=== PATIENT | female | born 1950 | race Caucasian/White ===

== ENCOUNTER 2017-09-20 12:35 | Inpatient (IN) | payer MEDICARE ==
[2017-09-20 13:18] LABS: #Basophils 0.1 thou/uL (0.0-0.2); #Eosinphils 0.1 thou/uL (0.0-0.7); #Lymphocytes 1.7 thou/uL (1.20-3.40); #Monocytes 0.4 thou/uL (0.11-0.59); #Neutrophils 3.3 thou/uL (1.40-6.50); %Basophils 1.1 % (0.0-1.0); %Eosinophils 1.1 % (0.0-10.0); %Lymphocytes 30.9 % (21.0-51.0); %Monocytes 7.1 % (0.0-10.0); %Neutrophils 59.8 % (42.0-75.0); Hemoglobin 12.7 g/dL (12.0-16.0); Mean Corpuscular HGB CONC 33.2 g/dL (32.0-36.0); Mean Corpuscular Hemoglobin 28.9 pg (27.0-31.0); Mean Corpuscular Volume 86.9 fl (81.0-99.0); Mean Platelet Volume 6.8 fL (7.4-10.4); Platelet Count 259 thou/uL (130-400); RBC Distribution Width 13.3 % (11.5-14.5); Red Blood Cell (RBC) Count 4.39 mill/uL (4.20-5.40); White Blood Cell (WBC) Count 5.5 thou/uL (4.8-10.8)
[2017-09-20 13:24] LABS: ALT (SGPT) 21 U/L (8-55); AST (SGOT) 16 U/L (5-34); Albumin 4.2 g/dL (3.4-4.8); Alkaline Phosphatase 69 U/L (40-150); Anion Gap 15 mmol/L (10-20); BUN (Urea Nitrogen) 20 mg/dL (9.8-20.1); Bilirubin, Total 0.5 mg/dL (0.2-1.2); Calc. Creatinine Clearance 0 mL/min (70-130); Carbon Dioxide 23 mmol/L (23-31); Chloride 106 mmol/L (98-107); Estimated GFR-MDRD 45; Globulin 3.6 g/dL (2.4-3.5); Glucose 172 mg/dL (80-115); Potassium 4.1 mmol/L (3.5-5.1); Protein, Total 7.8 g/dL (6.0-8.3); Sodium 140 mmol/L (136-145)
[2017-09-20 13:31] LABS: CKMB 2.5 ng/mL (0-6.6); Troponin I 0.222 ng/mL (< 0.028)
[2017-09-20 14:15] LABS: Bilirubin Negative (Negative); Blood, Urine Negative (Negative); Clarity Clear (Clear); Glucose, Urine (Dipstick) Negative (Negative); Leukocyte Negative (Negative); Nitrite Negative (Negative); Protein, Urine (Dipstick) Negative (Neg-Trace); Urobilinogen 0.2 mg/dL (0.2-1.0)
--- NOTE | 2017-09-20 14:49 | CT ---
CT ARTERIOGRAM CHEST WITH IV CONTRAST AND 3D MIP IMAGING: HISTORY: Tachycardia. Elevated D-dimer. FINDINGS: There is good contrast opacification of the pulmonary arteries and thoracic aorta with normal branchi ng of the great vessels. No pleural fluid or pneumothorax is apparent. No mediastinal adenopathy. Postoperative changes of the cervical spine are partially visualized. A 0.8 cm noncalcified nodule within the right middle lobe is stable, compared to CT abdomen from 04/02. IMPRESSION: No CT evidence for pulmonary embolus. POS: [facility]
--- NOTE | 2017-09-20 14:52 | CT ---
CT OF THE ABDOMEN AND PELVIS WITH CONTRAST: COMPARISON: 04/20/15. HISTORY: Left-sided abdominal pain. TECHNIQUE: Multiple contiguous axial images were obtained in a CT of the abdomen and pelvis with contrast. Juliano nal reformats were performed. FINDINGS: The gallbladder is not seen and has likely been removed. There are small hypodensities in the bilate ral kidneys which are stable and likely represents cysts. The liver, adrenal glands, spleen, and juan creas are unremarkable. No free air, free fluid, or stranding changes are seen in the abdomen or pel vis. The patient is status post hysterectomy. The large and small bowel are unremarkable. Atheroscleroti c calcifications are seen in the aorta. Mild degenerative changes are seen in the spine. The abdominal wall soft tissues are unremarkable. Please see dedicated CTA of the chest for findings above the diaphragm. IMPRESSION: 1. No evidence of acute intraabdominal/pelvic abnormality. 2. Bilateral renal cysts. POS: [facility]
[2017-09-20] MEDS ORDERED: Iopamidol 370 76% 100 ML VIAL ONE (16:43)
[2017-09-20 17:00] LABS: Troponin I 0.521 ng/mL (< 0.028)
[2017-09-20] MEDS ORDERED: Nitroglycerin 2% Ointment 1 INCH/1 GM Packet ONE (17:21)
[2017-09-20] MEDS ORDERED: Ondansetron HCl/PF 4 MG/2 ML Vial ONE (17:21)
[2017-09-20] MEDS ORDERED: Enoxaparin Sodium 100 MG/ML SYRINGE ONE (18:14)
[2017-09-20 20:04] LABS: Troponin I 0.588 ng/mL (< 0.028)
[2017-09-20] MEDS ORDERED: Nitroglycerin 2% Ointment 1 INCH/1 GM Packet TOP SCH (23:59)
[2017-09-21] MEDS ORDERED: Ondansetron HCl/PF 4 MG/2 ML Vial IVP PRN (07:50)
[2017-09-21] MEDS ORDERED: Zolpidem Tartrate 5 MG TAB PO PRN (07:50)
[2017-09-21] MEDS ORDERED: HYDROcodone/Acetaminophen 5/325 mg Tablet PO PRN (07:50)
[2017-09-21] MEDS ORDERED: Eucerin (Mineral Oil/Petrolatum,White) 30 gm Jar TOP PRN (07:50)
[2017-09-21] MEDS ORDERED: Senokot 8.6 MG TAB PO PRN (07:50)
[2017-09-21] MEDS ORDERED: hydrALAZINE 20 MG/ML VIAL SLOW IVP PRN (07:50)
[2017-09-21] MEDS ORDERED: clonazePAM 1 MG TAB PO PRN (07:50)
[2017-09-21] MEDS ORDERED: Artificial Tears 18 DROP/0.9 ML EA EYE PRN (07:50)
[2017-09-21] MEDS ORDERED: Chloraseptic Spray 180 ml Bottle PO PRN (07:50)
[2017-09-21] MEDS ORDERED: Nitroglycerin 0.4 MG TAB (25 Tab Bottle) SL PRN (07:50)
[2017-09-21] MEDS ORDERED: Milk Of Magnesia 30 ML UDCUP PO PRN (07:50)
[2017-09-21] MEDS ORDERED: Diabetic Tussin 200 MG/10 ML UDCUP PO PRN (07:50)
[2017-09-21] MEDS ORDERED: Sodium Chloride 0.65% Nasal 44 ML BOT EA NARE PRN (07:50)
[2017-09-21] MEDS ORDERED: HumaLOG 300 UNITS/3 ML VIAL SC PRN ×2 (07:50)
[2017-09-21] MEDS ORDERED: Mag-Al 1200 mg/1200 mg/30 ML UDCUP PO PRN (07:50)
[2017-09-21] MEDS ORDERED: Loratadine 10 MG TAB PO PRN (07:50)
[2017-09-21] MEDS ORDERED: Ondansetron ODT 4 MG TAB PO PRN (07:50)
[2017-09-21] MEDS ORDERED: Dextrose 5% in Water 1,000 ML IV PRN (07:50)
[2017-09-21] MEDS ORDERED: Dextrose 50% Abboject 50 ML SYRINGE SLOW IVP PRN (07:50)
[2017-09-21] MEDS ORDERED: Loperamide HCl 2 MG CAP PO PRN (07:50)
[2017-09-21] MEDS ORDERED: Acetaminophen 325 MG TAB PO PRN (07:50)
[2017-09-21] MEDS ORDERED: glipiZIDE 5 MG TAB PO SCH (08:30)
[2017-09-21] MEDS ORDERED: Lisinopril 5 MG TAB PO SCH (09:00)
[2017-09-21 09:19] VITALS: BMI 35.8
[2017-09-21] MEDS ORDERED: Sodium Chloride 0.9% 10 ML ONE (09:32)
[2017-09-21] MEDS: Aspirin 325 MG TAB PO SCH (10:33)
[2017-09-21] MEDS: Estradiol 1 MG TAB PO SCH (10:35)
[2017-09-21] MEDS: Ubidecarenone 50 MG CAP PO SCH (10:36)
--- NOTE | 2017-09-21 11:18 | HP ---
PRIMARY CARE PHYSICIAN: Dr. Preston Herring D.O. REASON FOR ADMISSION: Acute hypotension, tachycardia, non-ST elevation myocardial infarction. HISTORY OF PRESENT ILLNESS: A 67-year-old female who has underlying of hypertension, diabetes type 2 , gastroesophageal reflux disease, hypothyroidism, anxiety and depression who was evaluated at [facility] Emergency Room yesterday. The patient reports that for the last few days, she was ex periencing dizziness. Patient was reporting to me that whenever she was bending, she was feeling diz zy, lightheaded, and nausea. This was going on for about 2 to 3 days. The patient also noticed that whenever she was going outside walk with her dog, after that she was feeling more weak and dizzy. S imilarly yesterday morning, she was feeling very weak after returning from walk. She was exhausted. She checked her blood pressure and her blood pressure was in 70 systolic and her pulse was in 150-16 0s. She waited for a few minutes, but her blood pressure remained low, and her pulse remained high. She was feeling palpitation as well. She was feeling weakness, dizziness and that is why she decide d to go to local emergency room at [facility] ER. Patient also noticed that few days ago, she was experiencing funny sensation in her chest and at the same time, she was hurting in her teeth, she was trying to burp, but she was not able to burp and obi t sensation was not related with any exertion or deep breathing or food. This patient was evaluated at [facility] Emergency Room. At that time, she was hemodynami angela stable. Her blood pressure was normal. Initially, she was tachycardic, but she was saturating normal. Her D-dimer was elevated and that is why they did a CT angio which was negative for pulmona ry embolism. Her CT of the abdomen and pelvis was done which was also normal. Routine blood tests s howed elevated troponin. This patient was transferred to our hospital for further evaluation. Patient denies any real chest pain. She denies any syncope. She denies any orthopnea, PND or leg sw elling. She denies any fever, chills, cough, UTI symptoms. She denies any constipation, diarrhea, m alisson, hematochezia. Patient reports that 6 years ago, she had a stress test done in [place] and after that, it was abnor mal and subsequently she had a cardiac catheterization, but it was normal. She also had echocardiogr aphy in our hospital in 03/2017, which was unremarkable and a stress test was also negative. ALLERGIES: Patient is allergic to BETA RYDER, DIPHTHERIA, TETANUS, PERTUSSIS VACCINE, SULFA DRUGS. CURRENT HOME MEDICATIONS: Glipizide 2.5 mg p.o. daily, [place] Thyroid 75 mg p.o. daily, lisinopril 5 mg p.o. daily, Klonopin 1 mg 3 times daily, estradiol 1 mg p.o. at bedtime, Zoloft 100 mg p.o. every day, Zocor 40 mg p.o. at bedtime, Protonix 40 mg p.o. daily, Lasix 20 mg p.o. daily, vitamin D3 of 5 000 units p.o. daily, Probiotic 1 capsule daily, melatonin 10 mg p.o. at bedtime p.r.n., Coenzyme Q10 of 100 mg p.o. daily, ProAir HFA as needed, Symbicort 2 puff inhalation b.i.d., tramadol as needed. REVIEW OF SYSTEMS: The following complete review of systems was negative, unless otherwise mentioned in the HPI or below: Constitutional: Weight loss or gain, ability to conduct usual activities. Sk in: Rash, itching. Eyes: Double vision, pain. ENT/Mouth: Nose bleeding, neck stiffness, pain, te nderness. Cardiovascular: Palpitations, dyspnea on exertion, orthopnea. Respiratory: Shortness of breath, wheezing, cough, hemoptysis, fever or night sweats. Gastrointestinal: Poor appetite, abdom inal pain, heartburn, nausea, vomiting, constipation, or diarrhea. Genitourinary: Urgency, frequenc y, dysuria, nocturia. Musculoskeletal: Pain, swelling. Neurologic/Psychiatric: Anxiety, depressio n. Allergy/Immunologic: Skin rash, bleeding tendency. Please see my HPI for pertinent positives and negatives. All other review of systems reviewed and ne gative except as mentioned in the HPI. 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 PAST SURGICAL HISTORY: Right carpal tunnel surgery, cataract surgery with lens implantation in both eyes, bladder sling surgery, laparoscopy, adhesion removal of the face and neck, left appendicectomy, cholecystectomy, hysterectomy, C4-C5 diskectomy with fusion, C5-C6 with plates, tonsillectomy. PAST PSYCHIATRIC HISTORY: Anxiety, depression, posttraumatic stress disorder, obsessive compulsive d isorder. SOCIAL HISTORY: The patient is living at home by herself. No history of tobacco, alcohol or illicit drug abuse. FAMILY HISTORY: One of the sisters has coronary artery disease. Heart disease runs among several [facility] members. No strong family history of cancer or stroke. EMERGENCY ROOM COURSE: Patient was given Lovenox 1 mg per kg, aspirin 324 mg, Zofran 4 mg, IV fluid 2 liters, and nitropatch 0.5 inch. PHYSICAL EXAMINATION: VITAL SIGNS: On arrival, blood pressure 135/78, pulse 150, respiratory rate 16, temperature 97.8, sa turation 96% on room air, weight 103.4 kilograms. GENERAL: Patient is currently alert, awake, no obvious acute distress. HEENT: Normocephalic, atraumatic. Eyes: Pupils round, reactive to light. Extraocular muscles inta ct. ENT: Oropharynx within normal limits. Moist mucous membranes. No oral lesions. No pharyngeal eryt ct, no exudate. NECK: Supple, no JVD, no thyromegaly, no carotid bruit, no jugular venous distention. LUNGS: Clear to auscultation without any rhonchi or rales. CARDIAC: S1, S2 regular, tachycardia, no murmur, no gallop, no rub. ABDOMEN: Soft, bowel sounds present, nontender, nondistended. No organomegaly, no mass. No epigast tammy tenderness, no Giles sign, no peritoneal sign, no suprapubic tenderness. BACK: Unremarkable. No CVA tenderness. EXTREMITIES: Upper extremity passive movement of all joints are normal. Lower extremities: No katiana a. Good peripheral pulsation. SKIN: No skin rash. HEMATOLOGICAL: No lymphadenopathy. PSYCHIATRIC: Normal affect. SIGNIFICANT LABS: EKG showing normal sinus rhythm, sinus tachycardia, poor R-wave progression. Repe at EKG was also similar to previous without any changes. Chest CT angiography, no evidence of pulmon maria elena embolism. CT of the abdomen and pelvis, no acute abdominal process. CBC: WBC 5.5, hemoglobin 12.7, platelets 259. D-dimer is 0.58. Sodium 140, potassium 4.1, chloride 106, carbon dioxide 23, anion gap 15, BUN 20, creatinine 1.20, glucose 172, calcium 10.0. Lactic ac id 2.0. LFT: AST 16, ALT 21, alkaline phosphatase 69, albumin 4.2, lipase 235, CK-MB 2.5, troponin I 0.222, then 0.521 then 0.588. Urinalysis normal. ASSESSMENT AND PLAN: 1. Non-ST elevation myocardial infarction. This patient has atypical presentation. This patient ramirez s acute weakness. She was hypotensive, tachycardic as well as patient also has a previous history of chest discomfort with some jaw discomfort. Patient has underlying diabetes and in female who we are suspecting this presentation could be angina equivalent. Her troponin has been increased to non-YULIYA OH range and that is why we will treat as non-STEMI. Patient is already given aspirin at the emergen cy room and Lovenox 1 mg per kg in the emergency room. At this point, we will continue with aspirin, Lovenox. We will also start Lipitor 20 mg p.o. at bedtime. The patient is allergic to BETA RYDER therapy and that is why we will hold on that medication. We will consult Cardiology. Patient reggie shoemaker had echocardiography in the recent past, so we will defer that to Cardiology. She may need a repe at cardiac catheterization. We will repeat lipid profile tomorrow morning for risk stratification. If the blood pressure permits, then we will use nitropatch, otherwise we will discontinue nitropatch. We will closely monitor on telemetry floor. 2. Diabetes type 2. We will continue glipizide 2.5 mg p.o. daily, insulin as per sliding scale prot ocol. Diabetic diet will be given. 3. Hypothyroidism. We will continue [place] Thyroid 75 mg p.o. daily as per home dosage and will fiona ck a TSH tomorrow. 4. Gastroesophageal reflux disease. We will continue Protonix 40 mg p.o. daily. 5. Dyslipidemia. Check lipid profile tomorrow and continue Lipitor 20 mg p.o. at bedtime. 6. Anxiety and depression. We will continue clonazepam 1 mg p.o. b.i.d. p.r.n. and 2 mg p.o. at bed time, as well as p.r.n. basis. 7. Obesity with BMI 35. Dietary education given, weight loss education given. Healthy lifestyle me asures discussed with the patient. 8. Chronic kidney disease stage 3. We will monitor renal function, elevated D-dimer, but negative C T angio and ruled out PE. 9. Hypertension, but history of hypotension. At this point, we will hold on lisinopril therapy sofi use of relatively low blood pressure. Whenever blood pressure permits, then we will resume patient's medication. 10. Deep venous thrombosis prophylaxis. Patient is already on full dose of Lovenox therapy. 11. Gastrointestinal prophylaxis, Protonix 40 mg p.o. daily. CODE STATUS: The patient is FULL CODE. The patient does not have a surrogate decision maker. DISPOSITION PLAN: Based on clinical course. We are expecting patient's stay in the hospital more th an 2 midnights. Plan of care discussed with the patient in detail.
[2017-09-21] MEDS: Enoxaparin Sodium 100 MG/ML SYRINGE SC SCH ×2 (13:07→20:27)
[2017-09-21] MEDS ORDERED: Nitroglycerin 2% Ointment 1 INCH/1 GM Packet TOP SCH (14:00)
--- NOTE | 2017-09-21 15:33 | CON ---
DATE OF CONSULTATION: 09/21/2017 CARDIOLOGY CONSULTATION REASON FOR CONSULTATION: Non-STEMI. HISTORY OF PRESENT ILLNESS: Ms. Vasquez is a very pleasant 67-year-old white female who comes to the hospital for tachycardia and hypotension and elevated troponins. She was at home and noticed that bishop montez felt lightheaded when she would lean down. She has had checked her blood pressure and her blood pr essure was 70s/40s and her heart rate was in the 160s. She sat down and rested, thought it might hav melida gotten better, but her heart rate only got down to the 150s and her blood pressure remained in the 70s/40s, she states she was feeling a lot of fluttering of her chest at that time. She thought she m ay be in atrial fibrillation, even though she has never been in this and she thought she might need t o come to the hospital. She called her primary care doctor who recommended that she go to the emerge ncy room given her hypotension. In the ER, she was found to be tachycardic in the 140s and hypotensi ve. She started on IV fluids and that her heart rates only came down to the 60s and her blood pressu re came up to the 120s. EKG done at that time showed a heart rate in the 140s, thought to be in sinu s tachycardia. Troponins were drawn at that time as well and they were elevated, so Cardiology was c onsulted for further evaluation and care. PAST MEDICAL HISTORY: 1. Hypothyroidism. 2. Hypertension. 3. Restless leg syndrome. 4. Bronchial asthma. 5. OCD and PTSD. 6. Sleep apnea. 7. Anxiety and depression. 8. Degenerate joint disease. 9. Rheumatoid arthritis. 10. Type 2 diabetes. 11. Hyperlipidemia. 12. Anemia of iron deficiency. 13. GERD. 14. Peripheral neuropathy. 15. Renal cyst. 16. Benign lung nodule. 17. Diabetic nephropathy. 18. Chronic kidney disease stage 2 now. 19. Nephrolithiasis. 20. Peripheral vascular disease. 21. Mild coronary artery disease on heart catheterization in 2013. PAST SURGICAL HISTORY: 1. Appendectomy. 2. Tonsillectomy. 3. Total hysterectomy in 1970. 4. Cholecystectomy. 5. Thoracic outlet surgery in 1975. 6. C3 and C6 diskectomy and fusion. 7. Ulnar nerve surgery. 8. Carpal tunnel release. 9. Bladder sling and lysis of adhesions. 10. Colonoscopy in the past. ALLERGIES: 1. SULFA DRUGS. 2. BETA BLOCKERS. 3. PENTAZOCINE. 4. LACTATE. 5. TALWIN. OUTPATIENT MEDICATIONS: Include: 1. Sertraline. 2. Glipizide. 3. Clonazepam. 4. Valerian root. 5. Co-Q 10. 6. [place] Thyroid 75 mg a day. 7. Zocor 40 at bedtime. 8. Silica gel. 9. Omeprazole. 10. Melatonin. 11. Lisinopril 5 mg b.i.d. 12. Estradiol 1 mg a day. 13. Cranberry extract. 14. Vitamin D3. 15. Zyrtec. SOCIAL HISTORY: Former smoker, quit about 30 years ago. No alcohol or drugs. FAMILY HISTORY: Father with PVD. REVIEW OF SYSTEMS: A 12 point review some of systems was done and it was all negative unless stated in the history of present illness. PHYSICAL EXAMINATION: VITAL SIGNS: Temperature 98.4, pulse 58, respiration rate 18, sat 95% on room, blood pressure 137/62 . GENERAL: Awake, alert, oriented x3, in no distress. HEENT: Normocephalic, atraumatic. NECK: Supple. LUNGS: Clear. CARDIOVASCULAR: S1, S2, no S3 or S4, no murmurs or rubs. ABDOMEN: Soft, positive bowel sounds. EXTREMITIES: No edema. SKIN: Warm and dry. LABORATORY WORK: Reviewed. CMP is unremarkable except for creatinine of 1.2, GFR 45. Troponin was 0.22, 0.52 and 0.58, glucose in the 120s-130s. Lipase 35. Lactic acid was 2.0, which is normal, ani on gap of 15. UA was unremarkable. CTA of the chest, abdomen, and pelvis was unremarkable. EKG reviewed. Initial EKG was read as sinus tachycardia. I think is most likely an atrial tachycard ia with a heart rate in the 140s and short RP. The second EKG, she is in sinus rhythm, heart rate in the 60s, very different P-wave morphology and then the original EKG when it was called or thought to be sinus tachycardia. ASSESSMENT AND PLAN: 1. Non-ST elevation myocardial infarction: Most likely related to demand ischemia from her atrial t achycardia. I agree with Lovenox full dose at this time and aspirin. Conservative therapy for now. She had a normal heart catheterization in 2013. 2. Atrial tachycardia: She has remained in sinus rhythm while she has been here, she had been evalu ated in the past for palpitations by Dr. Rosas and was not found to have any episodes during monitorin g, this may have been what was going on at that time. We will consult Electrophysiology to see if bernarda mendoza want to do an ablation. She is allergic to beta blockers, so stay away from these, we may put her on low dose calcium channel olegario; however, her blood pressure was little borderline low right now ; hopefully she will get an ablation and this is in fact an atrial tachycardia. Thank you for letting us to participate in the care of your patient. We will follow.
[2017-09-21] MEDS: Melatonin 3 MG TAB PO PRN (20:26)
[2017-09-21] MEDS: clonazePAM 1 MG TAB PO SCH (20:26)
[2017-09-21] MEDS: Atorvastatin Calcium 20 MG TAB PO SCH (21:16)
[2017-09-22 05:28] LABS: #Eosinphils 0.1 thou/uL (0.0-0.7); #Lymphocytes 1.3 thou/uL (1.20-3.40); #Monocytes 0.3 thou/uL (0.11-0.59); #Neutrophils 2.3 thou/uL (1.40-6.50); %Basophils 0.6 % (0.0-1.0); %Eosinophils 2.1 % (0.0-10.0); %Lymphocytes 32.9 % (21.0-51.0); %Neutrophils 56.5 % (42.0-75.0); Hemoglobin 10.9 g/dL (12.0-16.0); Mean Corpuscular HGB CONC 32.9 g/dL (32.0-36.0); Mean Corpuscular Hemoglobin 29.2 pg (27.0-31.0); Mean Corpuscular Volume 88.7 fl (81.0-99.0); Mean Platelet Volume 7.2 fL (7.4-10.4); Platelet Count 191 thou/uL (130-400); RBC Distribution Width 13.4 % (11.5-14.5); Red Blood Cell (RBC) Count 3.75 mill/uL (4.20-5.40); White Blood Cell (WBC) Count 4.1 thou/uL (4.8-10.8)
[2017-09-22 05:36] LABS: ALT (SGPT) 15 U/L (8-55); AST (SGOT) 14 U/L (5-34); Albumin 3.7 g/dL (3.4-4.8); Alkaline Phosphatase 56 U/L (40-150); Anion Gap 13 mmol/L (10-20); BUN (Urea Nitrogen) 14 mg/dL (9.8-20.1); Bilirubin, Total 0.4 mg/dL (0.2-1.2); Calc. Creatinine Clearance 85 mL/min (70-130); Calcium 9.9 mg/dL (7.8-10.44); Carbon Dioxide 26 mmol/L (23-31); Cardiac Risk 5.9 (Less than 4.5); Chloride 103 mmol/L (98-107); Cholesterol 171 mg/dl (< 200 Desired); Estimated GFR-MDRD 51; Globulin 2.9 g/dL (2.4-3.5); Glucose 122 mg/dL (80-115); HDL Cholesterol 29 mg/dL (>60 Neg Risk); LDL Cholesterol, Calculated 93 mg/dL; Potassium 3.9 mmol/L (3.5-5.1); Protein, Total 6.6 g/dL (6.0-8.3); Sodium 138 mmol/L (136-145); Triglycerides 243 mg/dL (Less than 150)
[2017-09-22] MEDS: glipiZIDE 5 MG TAB PO SCH (07:55)
[2017-09-22] MEDS: Enoxaparin Sodium 100 MG/ML SYRINGE SC SCH ×2 (08:39→22:12)
[2017-09-22] MEDS: Aspirin 325 MG TAB PO SCH (08:43)
[2017-09-22] MEDS: Estradiol 1 MG TAB PO SCH (08:44)
[2017-09-22] MEDS: Ubidecarenone 50 MG CAP PO SCH (08:48)
--- NOTE | 2017-09-22 09:55 | PDOC.PN ---
- Subjective Encounter Start Date: 09/22/17 Encounter Start Time: 07:40 pt is doing well, no chest pain, no further tachycardia - Objective Resuscitation Status: Resuscitation Status FULL:Full Resuscitation MAR Reviewed: Yes Vital Signs & Weight: Vital Signs (12 hours) Temp Pulse Resp BP Pulse Ox 09/22/17 07:43 97.3 F L 52 L 16 130/55 L 96 09/22/17 04:00 97.4 F L 54 L 14 118/57 L 95 09/21/17 23:09 82 12 98 Weight Admit Weight 234 lb 11.2 oz Weight 233 lb 9.6 oz I&O: 09/21/17 09/22/17 09/23/17 06:59 06:59 06:59 Intake Total 500 950 Output Total 250 1200 Balance 250 -250 Result Diagrams: 09/22/17 04:24 09/22/17 04:24 Additional Labs: Accuchecks 09/22/17 09/21/17 09/21/17 06:19 20:25 17:24 POC Glucose 127 H 121 H 124 H 09/21/17 11:29 POC Glucose 131 H EKG Reviewed by me: Yes (nsr) Phys Exam - Physical Examination Constitutional: NAD HEENT: PERRLA, moist MMs, sclera anicteric Neck: no JVD, supple Respiratory: no wheezing, no rales, no rhonchi Cardiovascular: RRR, no significant murmur, no rub Gastrointestinal: soft, non-tender, no distention, positive bowel sounds Musculoskeletal: no edema, pulses present Neurological: non-focal, normal sensation, moves all 4 limbs Psychiatric: normal affect, A&O x 3 Skin: no rash, normal turgor Dx/Plan (1) Hypotension Status: Resolved (2) Atrial tachycardia Code(s): I47.1 - SUPRAVENTRICULAR TACHYCARDIA Status: Resolved (3) Demand ischemia of myocardium Code(s): I24.8 - OTHER FORMS OF ACUTE ISCHEMIC HEART DISEASE Status: Acute (4) Obesity (BMI 30-39.9) Code(s): E66.9 - OBESITY, UNSPECIFIED Status: Chronic (5) Hypertension Code(s): I10 - ESSENTIAL (PRIMARY) HYPERTENSION Status: Chronic (6) Diabetes type 2, controlled Code(s): E11.9 - TYPE 2 DIABETES MELLITUS WITHOUT COMPLICATIONS Status: Chronic (7) Dyslipidemia Code(s): E78.5 - HYPERLIPIDEMIA, UNSPECIFIED Status: Chronic (8) GERD (gastroesophageal reflux disease) Code(s): K21.9 - GASTRO-ESOPHAGEAL REFLUX DISEASE WITHOUT ESOPHAGITIS Status: Chronic (9) Hypothyroidism Code(s): E03.9 - HYPOTHYROIDISM, UNSPECIFIED Status: Chronic (10) Anxiety and depression Code(s): F41.8 - OTHER SPECIFIED ANXIETY DISORDERS Status: Chronic - Plan cont current plan of care * cardiology recommendation noted * tomorrow EP consulted * will need EP study * medication reviewed as below * symptomatic treatment. Review of Systems - Review of Systems Constitutional: negative: fever, chills, sweats, weakness, malaise, other ENT: negative: Ear Pain, Ear Discharge, Nose Pain, Nose Discharge, Nose Congestion, Mouth Pain, Mouth Swelling, Throat Pain, Throat Swelling, Other Respiratory: negative: Cough, Dry, Shortness of Breath, Hemoptysis, SOB with Excertion, Pleuritic Pain, Sputum, Wheezing Cardiovascular: negative: chest pain, palpitations, orthopnea, paroxysmal nocturnal dyspnea, edema, light headedness, other Gastrointestinal: negative: Nausea, Vomiting, Abdominal Pain, Diarrhea, Constipation, Melena, Hematochezia, Other Genitourinary: negative: Dysuria, Frequency, Incontinence, Hematuria, Retention , Other Musculoskeletal: negative: Neck Pain, Shoulder Pain, Arm Pain, Back Pain, Hand Pain, Leg Pain, Foot Pain, Other Skin: negative: Rash, Lesions, Miguel, Bruising, Other - Medications/Allergies Allergies/Adverse Reactions: Allergies Allergy/AdvReac Type Severity Reaction Status Date / Time Beta-Blockers Allergy Verified 09/20/17 23:31 (Beta-Adrenergic Bloc diphtheria,pertussis Allergy Verified 09/20/17 23:31 (acellular),te [From Adacel(Tdap Adolesn/Adult)(PF)] pentazocine [From Talwin] Allergy Verified 09/20/17 23:31 Sulfa (Sulfonamide Allergy Verified 09/20/17 23:31 Antibiotics) Medications: Current Medications Acetaminophen (Tylenol) 650 mg PO Q4H PRN PRN Reason: Headache/Fever or Pain Hydrocodone Bitart/Acetaminophen ([place] 5/325) 1 tab PO Q4H PRN PRN Reason: Moderate Pain (4-6) Al Hydroxide/Mg Hydroxide (Maalox) 30 ml PO Q6H PRN PRN Reason: Heartburn or Indigestion Artificial Tears (Tears Naturale) 0 drop EA EYE PRN PRN PRN Reason: Dry Eyes Aspirin (Aspirin) 325 mg PO DAILY [facility], [facility] Last Admin: 09/22/17 08:43 Dose: 325 mg Atorvastatin Calcium (Lipitor) 20 mg PO HS [facility] Last Admin: 09/21/17 21:16 Dose: Not Given Cholecalciferol (Vitamin D3) 5,000 units PO DAILY [facility], [facility] Last Admin: 09/22/17 08:43 Dose: 5,000 units Clonazepam (Klonopin) 2 mg PO HS [facility] Last Admin: 09/21/17 20:26 Dose: 2 mg Clonazepam (Klonopin) 1 mg PO BID PRN PRN Reason: Anxiety Coenzyme Q10 (Coenzyme Q10) 100 mg PO DAILY [facility] Last Admin: 09/22/17 08:48 Dose: 100 mg Dextrose/Water (Dextrose 50%) 25 gm SLOW IVP PRN PRN PRN Reason: Hypoglycemia Enoxaparin Sodium (Lovenox) 100 mg SC 0900,2100 [facility] Last Admin: 09/22/17 08:39 Dose: 100 mg Estradiol (Estrace) 1 mg PO DAILY [facility] Last Admin: 09/22/17 08:44 Dose: 1 mg Glipizide (Glucotrol) 2.5 mg PO DAILY-[facility] Last Admin: 09/22/17 07:55 Dose: 2.5 mg Glucagon (Glucagon) 1 mg IM PRN PRN PRN Reason: Hypoglycemia Guaifenesin (Robitussin Sf) 200 mg PO Q4H PRN PRN Reason: Cough Hydralazine HCl (Apresoline) 10 mg SLOW IVP Q4H PRN PRN Reason: Systolic BP > 180 Dextrose/Water (D5w) 1,000 mls @ 0 mls/hr IV .Q0M PRN; As Directed PRN Reason: Hypoglycemia Insulin Human Lispro (Humalog) 0 units SC .MODERATE SLIDING SC PRN PRN Reason: Moderate Correctional Scale Insulin Human Lispro (Humalog) 0 units SC .BEDTIME SLIDING SC PRN PRN Reason: Bedtime Correctional Scale Loperamide HCl (Imodium) 2 mg PO PRN PRN PRN Reason: Diarrhea/Loose Stools Loratadine (Claritin) 10 mg PO DAILYPRN PRN PRN Reason: Sinus Symptoms Last Admin: 09/21/17 20:27 Dose: 10 mg Magnesium Hydroxide (Milk Of Magnesium) 30 ml PO DAILYPRN PRN PRN Reason: Constipation Melatonin (Melatonin) 9 mg PO HS PRN PRN Reason: Insomnia Last Admin: 09/21/17 20:26 Dose: 9 mg Mineral Oil/White Petrolatum (Eucerin Cream) 0 gm TOP BIDPRN PRN PRN Reason: Dry Skin Nitroglycerin (Nitrostat) 0.4 mg SL Q5MIN PRN PRN Reason: Chest Pain Ondansetron HCl (Zofran Odt) 4 mg PO Q6H PRN PRN Reason: Nausea/Vomiting Ondansetron HCl (Zofran) 4 mg IVP Q6H PRN PRN Reason: Nausea/Vomiting Pantoprazole Sodium (Protonix) 40 mg PO DAILY [facility] Last Admin: 09/22/17 08:45 Dose: 40 mg Phenol (Chloraseptic [place] 180 Ml Bot) 0 ml PO PRN PRN PRN Reason: Sore Throat Senna (Senokot) 2 tab PO HSPRN PRN PRN Reason: Constipation Sertraline HCl (Zoloft) 150 mg PO DAILY [facility] Last Admin: 09/22/17 08:47 Dose: 150 mg Sodium Chloride ([place] Nasal [place] 0.65%) 0 ml EA NARE QIDPRN PRN PRN Reason: Nasal Congestion Thyroid ([place] Thyroid) 75 mg PO 0600 [facility] Last Admin: 09/22/17 05:11 Dose: 75 mg Zolpidem Tartrate (Ambien) 5 mg PO HSPRN PRN PRN Reason: Insomnia
--- NOTE | 2017-09-22 18:34 | PDOC.CTH ---
Cardiology Progress Note - Subjective She isw doing well. She denies any chest pain, tightness, pressure, SOB. She ramirez snot had any more palpitations. - Objective Vital Signs Temp Pulse Resp BP Pulse Ox 09/22/17 16:00 97.8 F 56 L 16 149/64 H 95 09/22/17 11:41 97.6 F 54 L 18 164/70 H 99 09/22/17 07:43 97.3 F L 52 L 16 130/55 L 96 Admit Weight 234 lb 11.2 oz Weight 233 lb 9.6 oz 09/21/17 09/22/17 09/23/17 06:59 06:59 06:59 Intake Total 500 950 Output Total 250 1200 Balance 250 -250 - Physical Examination General/Neuro: alert & oriented x3, NAD Neck: no JVD present Lungs: CTA, unlabored respirations Heart: RRR Abdomen: NT/ND Extremities: other: (no edema.) - Telemetry Telemetry Rhythm: NSR, S Dean - Labs Result Diagrams: 09/22/17 04:24 09/22/17 04:24 Troponin/CKMB CK-MB (CK-2) 2.5 ng/mL (0-6.6) 09/20/17 12:59 Troponin I 0.588 ng/mL (< 0.028) H* 09/20/17 19:31 - Assessment/Plan 1. Atrial tachycardia likely 2. NSTEMI PLAN: - Will have EP evaluate in the morning. If they think this is not an atrial tach and in fact more likely sinus tach then she will need a LHC, otherwise will leave NPO for possible EP study.
[2017-09-22] MEDS: Melatonin 3 MG TAB PO PRN (22:11)
[2017-09-22] MEDS: clonazePAM 1 MG TAB PO SCH (22:12)
[2017-09-23] MEDS: Atorvastatin Calcium 20 MG TAB PO SCH ×2 (00:36→22:34)
[2017-09-23] MEDS: glipiZIDE 5 MG TAB PO SCH (07:30)
[2017-09-23] MEDS: Enoxaparin Sodium 100 MG/ML SYRINGE SC SCH (09:09)
[2017-09-23] MEDS: Aspirin 325 MG TAB PO SCH (09:20)
[2017-09-23] MEDS: Ubidecarenone 50 MG CAP PO SCH (09:21)
[2017-09-23] MEDS: Sodium Chloride 0.9% 1,000 ML IV SCH (09:22)
[2017-09-23] MEDS: Estradiol 1 MG TAB PO SCH (09:22)
[2017-09-23] MEDS ORDERED: Iopamidol 370 76% 100 ML VIAL ONE (11:39)
--- NOTE | 2017-09-23 12:14 | PDOC.PN ---
- Subjective Encounter Start Date: 09/23/17 Encounter Start Time: 08:10 Patient seen and examined. No new complaints. No overnight events - Objective Resuscitation Status: Resuscitation Status FULL:Full Resuscitation MAR Reviewed: Yes Vital Signs & Weight: Vital Signs (12 hours) Temp Pulse Resp BP Pulse Ox 09/23/17 10:55 98.1 F 58 L 16 169/70 H 94 L 09/23/17 09:40 97.6 F 57 L 16 96 09/23/17 09:19 97.6 F 57 L 16 132/65 96 09/23/17 03:55 97.4 F L 55 L 20 128/58 L 94 L Weight Admit Weight 234 lb 11.2 oz Weight 233 lb 3.2 oz I&O: 09/22/17 09/23/17 09/24/17 06:59 06:59 06:59 Intake Total 950 970 Output Total 1200 1400 Balance -250 -430 Result Diagrams: 09/22/17 04:24 09/22/17 04:24 Additional Labs: Accuchecks 09/22/17 09/22/17 20:05 16:24 POC Glucose 161 H 142 H EKG Reviewed by me: Yes (nsr) Phys Exam - Physical Examination Constitutional: NAD HEENT: PERRLA, moist MMs, sclera anicteric Neck: no JVD, supple Respiratory: no wheezing, no rales, no rhonchi Cardiovascular: RRR, no significant murmur, no rub Gastrointestinal: soft, non-tender, no distention Musculoskeletal: no edema, pulses present Neurological: non-focal, normal sensation Lymphatic: no nodes Psychiatric: normal affect, A&O x 3 Skin: no rash, normal turgor Dx/Plan (1) Hypotension Status: Resolved (2) Atrial tachycardia Code(s): I47.1 - SUPRAVENTRICULAR TACHYCARDIA Status: Resolved (3) Demand ischemia of myocardium Code(s): I24.8 - OTHER FORMS OF ACUTE ISCHEMIC HEART DISEASE Status: Acute (4) Obesity (BMI 30-39.9) Code(s): E66.9 - OBESITY, UNSPECIFIED Status: Chronic (5) Hypertension Code(s): I10 - ESSENTIAL (PRIMARY) HYPERTENSION Status: Chronic (6) Diabetes type 2, controlled Code(s): E11.9 - TYPE 2 DIABETES MELLITUS WITHOUT COMPLICATIONS Status: Chronic (7) Dyslipidemia Code(s): E78.5 - HYPERLIPIDEMIA, UNSPECIFIED Status: Chronic (8) GERD (gastroesophageal reflux disease) Code(s): K21.9 - GASTRO-ESOPHAGEAL REFLUX DISEASE WITHOUT ESOPHAGITIS Status: Chronic (9) Hypothyroidism Code(s): E03.9 - HYPOTHYROIDISM, UNSPECIFIED Status: Chronic (10) Anxiety and depression Code(s): F41.8 - OTHER SPECIFIED ANXIETY DISORDERS Status: Chronic - Plan cont current plan of care, plan discussed w/ family * today plan for cardiac cath * discussed with EP * discussed with * medication reviewed as below * symptomatic treatment * medically stable. Review of Systems - Review of Systems ENT: negative: Ear Pain, Ear Discharge, Nose Pain, Nose Discharge, Nose Congestion, Mouth Pain, Mouth Swelling, Throat Pain, Throat Swelling, Other Respiratory: negative: Cough, Dry, Shortness of Breath, Hemoptysis, SOB with Excertion, Pleuritic Pain, Sputum, Wheezing Cardiovascular: negative: chest pain, palpitations, orthopnea, paroxysmal nocturnal dyspnea, edema, light headedness, other Gastrointestinal: negative: Nausea, Vomiting, Abdominal Pain, Diarrhea, Constipation, Melena, Hematochezia, Other Genitourinary: negative: Dysuria, Frequency, Incontinence, Hematuria, Retention , Other Musculoskeletal: negative: Neck Pain, Shoulder Pain, Arm Pain, Back Pain, Hand Pain, Leg Pain, Foot Pain, Other Skin: negative: Rash, Lesions, Miguel, Bruising, Other - Medications/Allergies Allergies/Adverse Reactions: Allergies Allergy/AdvReac Type Severity Reaction Status Date / Time Beta-Blockers Allergy Verified 09/20/17 23:31 (Beta-Adrenergic Bloc diphtheria,pertussis Allergy Verified 09/20/17 23:31 (acellular),te [From Adacel(Tdap Adolesn/Adult)(PF)] pentazocine [From Talwin] Allergy Verified 09/20/17 23:31 Sulfa (Sulfonamide Allergy Verified 09/20/17 23:31 Antibiotics) Medications: Current Medications Acetaminophen (Tylenol) 650 mg PO Q4H PRN PRN Reason: Headache/Fever or Pain Last Admin: 09/22/17 22:12 Dose: 650 mg Hydrocodone Bitart/Acetaminophen ([place] 5/325) 1 tab PO Q4H PRN PRN Reason: Moderate Pain (4-6) Al Hydroxide/Mg Hydroxide (Maalox) 30 ml PO Q6H PRN PRN Reason: Heartburn or Indigestion Artificial Tears (Tears Naturale) 0 drop EA EYE PRN PRN PRN Reason: Dry Eyes Aspirin (Aspirin) 325 mg PO DAILY [facility] Last Admin: 09/23/17 09:20 Dose: 325 mg Atorvastatin Calcium (Lipitor) 20 mg PO HS [facility] Last Admin: 09/23/17 00:36 Dose: Not Given Cholecalciferol (Vitamin D3) 5,000 units PO DAILY [facility] Last Admin: 09/23/17 09:09 Dose: Not Given Clonazepam (Klonopin) 2 mg PO HS [facility] Last Admin: 09/22/17 22:12 Dose: 2 mg Clonazepam (Klonopin) 1 mg PO BID PRN PRN Reason: Anxiety Coenzyme Q10 (Coenzyme Q10) 100 mg PO DAILY [facility] Last Admin: 09/23/17 09:21 Dose: 100 mg Dextrose/Water (Dextrose 50%) 25 gm SLOW IVP PRN PRN PRN Reason: Hypoglycemia Enoxaparin Sodium (Lovenox) 100 mg SC 0900,2100 [facility] Last Admin: 09/23/17 09:09 Dose: Not Given Estradiol (Estrace) 1 mg PO DAILY [facility] Last Admin: 09/23/17 09:22 Dose: 1 mg Glipizide (Glucotrol) 2.5 mg PO DAILY-AC [facility] Last Admin: 09/23/17 07:30 Dose: Not Given Glucagon (Glucagon) 1 mg IM PRN PRN PRN Reason: Hypoglycemia Guaifenesin (Robitussin Sf) 200 mg PO Q4H PRN PRN Reason: Cough Hydralazine HCl (Apresoline) 10 mg SLOW IVP Q4H PRN PRN Reason: Systolic BP > 180 Dextrose/Water (D5w) 1,000 mls @ 0 mls/hr IV .Q0M PRN; As Directed PRN Reason: Hypoglycemia Sodium Chloride (Normal Saline 0.9%) 1,000 mls @ 100 mls/hr IV .Q10H [facility] Last Admin: 09/23/17 09:22 Dose: 1,000 mls Insulin Human Lispro (Humalog) 0 units SC .MODERATE SLIDING SC PRN PRN Reason: Moderate Correctional Scale Insulin Human Lispro (Humalog) 0 units SC .BEDTIME SLIDING SC PRN PRN Reason: Bedtime Correctional Scale Loperamide HCl (Imodium) 2 mg PO PRN PRN PRN Reason: Diarrhea/Loose Stools Loratadine (Claritin) 10 mg PO DAILYPRN PRN PRN Reason: Sinus Symptoms Last Admin: 09/21/17 20:27 Dose: 10 mg Magnesium Hydroxide (Milk Of Magnesium) 30 ml PO DAILYPRN PRN PRN Reason: Constipation Melatonin (Melatonin) 9 mg PO HS PRN PRN Reason: Insomnia Last Admin: 09/22/17 22:11 Dose: 9 mg Mineral Oil/White Petrolatum (Eucerin Cream) 0 gm TOP BIDPRN PRN PRN Reason: Dry Skin Nitroglycerin (Nitrostat) 0.4 mg SL Q5MIN PRN PRN Reason: Chest Pain Ondansetron HCl (Zofran Odt) 4 mg PO Q6H PRN PRN Reason: Nausea/Vomiting Ondansetron HCl (Zofran) 4 mg IVP Q6H PRN PRN Reason: Nausea/Vomiting Pantoprazole Sodium (Protonix) 40 mg PO DAILY [facility] Last Admin: 09/23/17 09:22 Dose: 40 mg Phenol (Chloraseptic [place] 180 Ml Bot) 0 ml PO PRN PRN PRN Reason: Sore Throat Senna (Senokot) 2 tab PO HSPRN PRN PRN Reason: Constipation Sertraline HCl (Zoloft) 150 mg PO DAILY [facility] Last Admin: 09/23/17 09:21 Dose: 150 mg Sodium Chloride ([place] Nasal [place] 0.65%) 0 ml EA NARE QIDPRN PRN PRN Reason: Nasal Congestion Thyroid ([place] Thyroid) 75 mg PO 0600 [facility] Last Admin: 09/23/17 05:31 Dose: 75 mg Zolpidem Tartrate (Ambien) 5 mg PO HSPRN PRN PRN Reason: Insomnia
[2017-09-23] MEDS ORDERED: Verapamil 5 MG/2 ML VIAL ONE (12:43)
[2017-09-23] MEDS ORDERED: Heparin 10,000 UNITS/1 ML VIAL ONE ×2 (12:43→14:07)
[2017-09-23] MEDS ORDERED: Nitroglycerin 100MG/250ML BOT 250 ML ONE (12:43)
[2017-09-23] MEDS ORDERED: Midazolam HCl 2 mg/2 ml Vial ONE ×2 (12:55→14:31)
[2017-09-23] MEDS ORDERED: Fentanyl 100 MCG/2 ML VIAL ONE ×2 (12:56→14:33)
--- NOTE | 2017-09-23 13:56 | CON ---
ELECTROPHYSIOLOGY CONSULTATION REPORT DATE OF CONSULTATION: 09/23/2017 REFERRING PHYSICIAN: Dr. Raymond Fernandez. I am seeing Ms. Vasquez at our [facility] telemetry floor as an electrophysiology senior science consultant. Her problems are: 1. Presentation with tachycardia, atrial tachycardia versus sinus tachycardia in the setting of hypertension associated with troponin rise. 2. Minor structural abnormalities on an echocardiogram on 09/22/2017 with an LVEF of 55% to 60%, mild MR and mild TR, mild pulmonic regurgitation, diastolic dysfunction. 3. Coronary artery risk factors. A. Morbid obesity. B. Type 2 diabetes. C. Hypertension. D. Dyslipidemia. 4. Hypothyroidism. 5. History of obstructive sleep apnea. ALLERGIES: BETA BLOCKERS, DIPHTHERIA, TETANUS, PERTUSSIS VACCINE and SULFA DRUGS. MEDICATIONS AT HOME: Included Coenzyme Q10, melatonin, vitamin D3, Zocor, clonazepam, [place] Thyroid, Zestril 5 mg a day, Estrace, cranberry supplements, valerian root supplements, Zyrtec, silica gel, omeprazole 20 mg daily, glipizide , clonazepam and sertraline. SUBJECTIVE: Ms. Vasquez is here with symptoms of dyspnea. She was also getting extremely dizzy and very weak. Blood pressure was running in the 70s and heart rates up to 150s-160s. Eventually, came to the [facility] ER, had atypical chest sensations as well with some radiation to the jaw. She received some IV fluids and eventually her tachycardia spontaneously resolved. She was transferred to our facility hence elevated troponin levels. Dr. Fernandez evaluated her. At that time, she remained in sinus rhythm and I was requested to evaluate her for the nature of the tachycardia. She has no PND, orthopnea or lower extremity edema. No fever, chills or cough. No stroke-like symptoms. No full loss of consciousness documented. REVIEW OF SYSTEMS: Rest of the 12-point system otherwise unremarkable. PAST MEDICAL AND SURGICAL HISTORY: As above. She has a prior history of rheumatoid arthritis, cervical disk disorder, degenerative joint disease, restless leg syndrome and as noted above. She did have a left heart catheterization 6 years ago in [place], reportedly normal per patient. She also carries history of anxiety, depression, post-traumatic stress disorder and obsessive-compulsive disorder. SOCIAL HISTORY: Patient lives at home by herself. No history of smoking, EtOH or drug use. FAMILY HISTORY: Significant for a sister having coronary artery disease, heart disease runs in family. No history of cancer or stroke. OBJECTIVE: VITAL SIGNS: Currently blood pressure is 169/70, heart rate 58, respirations 16 and temperature 98.1 degrees Fahrenheit. GENERAL: This is an alert and oriented woman with elevated BMI, in no apparent distress. NECK: Supple. Jugular veins are not distended. CHEST: Coarse without crackles. CARDIOVASCULAR: Heart sounds are regular to rate and rhythm. No murmur or gallop. ABDOMEN: Benign. Bowel sounds positive. EXTREMITIES: Lower extremities without edema, clubbing or cyanosis. Pulses are adequate. NEUROLOGIC: Patient is nonfocal. MUSCULOSKELETAL: No joint swelling or deformities. SKIN: Without rash. DATABASE: The EKG is reviewed revealing initial tachycardia at a rate of 150 beats per minute. The PVCs could be considered as sinus tachycardia, cannot rule out right atrial tachycardia, either. Subsequent EKGs reveal sinus rhythm. No subsequent tachyarrhythmias are noted. LABORATORY DATA: White cells 4.1, hemoglobin 7.9 and platelet count is 191. Sodium 138, potassium 3.9, BUN is 14 and creatinine 1.07. The troponins are 0.22, 0.52 and 0.58. ASSESSMENT AND PLAN: Ms. Vasquez is a pleasant 67-year-old woman with history of hypertension, diabetes, hypercholesterolemia, obesity, sleep apnea and hypothyroidism. She has normal left ventricular ejection fraction. She is presented with hyortension and associated with 'long RP type' tachycardia. Not very clear whether tachycardia was a reaction to the hypertension or contributing to the hypertension, either way, the rapid rates can decrease cardiac function. We did discuss this dilemma. We have decided with Dr. Fernandez to evaluate her coronary status first hence the elevated cardiac enzymes. If they are indeed normal, it might be reasonable to proceed with electrophysiology study to evaluate for any inducible tachyarrhythmias, if indeed when found ablation is a reasonable option. For now, she is doing well. Risks and benefits are detailed, willing to proceed. Thank you again for allowing me to participate in the care of this patient. PAULETTE
[2017-09-23] MEDS ORDERED: Ondansetron HCl/PF 4 MG/2 ML Vial ONE (15:07)
[2017-09-23] MEDS ORDERED: Propofol 200 MG/20 ML VIAL ONE (15:07)
[2017-09-23] MEDS ORDERED: PHENYLEPHRINE-NS 100 MCG/ML 10 ML SYRINGE ONE (15:07)
[2017-09-23] MEDS ORDERED: Isoproterenol 0.2 MG/1 ML AMP ONE (15:36)
[2017-09-23] MEDS ORDERED: Propofol 500 MG/50 ML VIAL ONE (15:56)
[2017-09-23] MEDS ORDERED: Promethazine HCl 25 MG/ML VIAL SLOW IVP PRN (16:44)
[2017-09-23] MEDS ORDERED: Ondansetron HCl/PF 4 MG/2 ML Vial IVP PRN ×2 (16:44→18:31)
[2017-09-23] MEDS ORDERED: Promethazine HCl 25 MG/ML VIAL IM PRN (16:44)
[2017-09-23] MEDS ORDERED: Mag-Al 1200 mg/1200 mg/30 ML UDCUP PO PRN (18:31)
[2017-09-23] MEDS ORDERED: Bisacodyl 5 MG TAB PO PRN (18:31)
[2017-09-23] MEDS ORDERED: diphenhydrAMINE 25 MG CAP PO PRN (18:31)
[2017-09-23] MEDS ORDERED: Temazepam 15 MG CAP PO PRN (18:31)
[2017-09-23] MEDS ORDERED: Bisacodyl 10 MG SUPP PR PRN (18:31)
[2017-09-23] MEDS ORDERED: Nitroglycerin 0.4 MG TAB (25 Tab Bottle) SL PRN (18:31)
[2017-09-23] MEDS ORDERED: traMADol HCl 50 MG TAB PO PRN (18:31)
[2017-09-23] MEDS ORDERED: Silver Sulfadiazine 1% Cream 50 GM JAR TOP PRN (18:31)
[2017-09-23] MEDS: Acetaminophen 325 MG TAB PO PRN (22:33)
[2017-09-23] MEDS: clonazePAM 1 MG TAB PO SCH (22:33)
[2017-09-24] MEDS: Sodium Chloride 0.9% 1,000 ML IV SCH ×3 (00:45→16:02)
[2017-09-24 04:58] LABS: Hemoglobin 9.9 g/dL (12.0-16.0); Platelet Count 190 thou/uL (130-400)
--- NOTE | 2017-09-24 06:33 | CCLSPC ---
DATE OF PROCDURE: 09/21/2017 ELECTROPHYSIOLOGY STUDY AND RADIOFREQUENCY ABLATION REPORT REASON FOR PROCEDURE: Mrs. Vasquez is a 67-year-old woman, who admitted with a narrow complex tachyca rdia. Initial EKG revealed sinus rhythm or atrial tachycardia. She is here for EP study and ablatio n procedure. DESCRIPTION OF PROCEDURE: The patient received deep sedation by Anesthesia specialist. Due to right -sided hematoma, all access were obtained from the left side. Left femoral venous area was prepped, draped, and anesthetized using subcutaneous lidocaine. Under ultrasound guidance, the right femoral vein was accessed using a multipurpose needle and then two 8-Burkinan short sheaths were introduced. A ll of the 8-Burkinan sheath was exchanged to Preface sheath, which was used to advance a Duodeca cathet er into the CS and the right atrial position. Following that, a decapolar catheter was used to pace sense record from the RV, His bundle, and the right atrial area. Comprehensive EP study was performe d and with the following findings, the baseline cycle length 99 milliseconds, sinus rhythm, QRS durat ion was 103, QT 369, AH 103, HV 41 milliseconds. The sinus node recovery time was about -----. Rudi ected sinus node recovery time was 570. AV Wenckebach cycle length was 400 milliseconds switching he r to 65 with Isuprel, the retrograde VA Wenckebach cycle length was 540 milliseconds concerning retro grade VA activation seen. Dual AV samantha physiology was observed during atrial access to my testing w ith the AV samantha ERP was 600/220 milliseconds. Following that with the burst atrial pacing, no atria l flutter was induced on Isuprel though ----- conduction we were able to induce AV samantha reentrant ta chycardia with a very short VA timing. Ventricular overdrive pacing determined arrhythmia, but durin g partial fusion with the ventricles, no advancement of the A interval seen. Following that, the Duodeca catheter was exchanged to a 4 mm standard ablation catheter, S-shelby gil ch was used to obtain -----, and the 3D mapping of slow pathway was performed. Slow pathway modifica tion was performed with a total of 3 ablation, total duration ablation was about a minute and a half. Following that, burst atrial pacing and atrial access to my testing did not re-induce the SVT. Durin g the initial face, very short nonsustained atrial tachycardia was seen, which appears to be earliest in the His bundle could have been so felt tachycardia and was not seen after slow pathway modificati on. CONCLUSION: 1. 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 2. The slow pathway modification elevated inducibility. 3. No change in the cardiac silhouette is seen post-ablation. POS: [facility]
[2017-09-24] MEDS ORDERED: Sodium Chloride 0.9% 10 ML ONE (07:30)
[2017-09-24] MEDS ORDERED: Clopidogrel Bisulfate 75 MG TAB ONE (07:31)
[2017-09-24] MEDS: glipiZIDE 5 MG TAB PO SCH (07:52)
[2017-09-24] MEDS: Aspirin 325 MG TAB PO SCH (07:54)
[2017-09-24] MEDS: Estradiol 1 MG TAB PO SCH (07:56)
[2017-09-24] MEDS: Ubidecarenone 50 MG CAP PO SCH (07:57)
[2017-09-24 12:41] VITALS: BP 174/71; TEMP 98.1
[2017-09-24] MEDS: Acetaminophen 325 MG TAB PO PRN (15:04)
--- NOTE | 2017-09-24 16:08 | DIS ---
DATE OF ADMISSION: 09/20/2017 DATE OF DISCHARGE: 09/24/2017 DISCHARGE DIAGNOSES: 1. Atrial tachycardia with inducible AV samantha reentry tachycardia. 2. Acute hypotension secondary to atrial tachycardia, resolved. 3. Demand ischemia. 4. Morbid obesity. 5. Obstructive sleep apnea. 6. Gastroesophageal reflux disease. 7. Chronic kidney disease, stage 3. 8. Rheumatoid arthritis. 9. Diabetes mellitus type 2. 10. Hypothyroidism. CONSULTATIONS: Dr. Fernandez with Cardiology Service. Dr. Jaffe with Electrophysiology Service. PERTINENT LAB AND X-RAY FINDINGS: Creatinine ranged between 1.0-1.20 with estimated GFR ranging betw een 45-55. Lactic acid level 2.0. LFTs within normal limits. Troponin I ranged between 0.222-0.588 , TSH 1.85, total cholesterol 171, triglycerides 243, HDL is 29, LDL 93. CBC showed a white blood ce ll count ranging between 4.1-5.5, hemoglobin ranged between 9.9-12.7. CT angiogram of the chest date d 09/20/2017 showed no evidence for pulmonary embolus. CT of the abdomen and pelvis dated 09/20/2017 showed no acute intraabdominal process. Left heart catheterization dated 09/23/2017 showed normal c oronary anatomy. A 2D transthoracic echocardiogram dated 09/22/2017 showed ejection fraction of 55% to 60%. Grade 2/3 diastolic dysfunction. Mild mitral, tricuspid, and pulmonic regurgitation. HOSPITAL COURSE: The patient was initially admitted to the telemetry unit after presenting with hypo tension, tachycardia, and concern for non-ST elevation myocardial infarction with elevated troponin I . Patient initially presented with dizziness with activity and hypotension. The patient underwent e xtensive evaluation by the Cardiology and Electrophysiology Service during her hospital course, under going cardiac catheterization showing normal coronary anatomy. The patient was initially placed on L ovenox, aspirin, Zofran, and given intravenous fluids. Patient was ruled out for acute coronary synd avelina with cardiac catheterization on 09/23/2017. The patient was then evaluated for potential electr ical disturbance and atrial tachycardia, undergoing electrophysiology study on 09/23/2017. The patie nt was noted with inducible AV samantha reentry tachycardia, nonsustained. The patient remained on tele metry monitoring showing overall sinus mechanism with stable cardiac rhythm after EP study. Currentl y, the patient is stable, tolerating regular oral intake with stable vital signs. The patient ready for discharge on 09/24/2017. DISCHARGE MEDICATIONS: 1. Enteric coated aspirin 81 mg 1 tablet p.o. daily. 2. Zyrtec 10 mg one tablet p.o. daily p.r.n. 3. Vitamin D3 at 5000 units p.o. daily. 4. Klonopin 1 mg p.o. b.i.d. and 2 mg p.o. at bedtime. 5. Cranberry extract 200 mg p.o. daily. 6. Estrace 1 mg p.o. daily. 7. Glipizide 2.5 mg p.o. daily. 8. Lisinopril 5 mg p.o. b.i.d. 9. Melatonin 10 mg p.o. at bedtime p.r.n. 9. Omeprazole 40 mg one tab p.o. daily. 10. Sertraline 150 mg p.o. q.a.m. 11. Zocor 40 mg p.o. at bedtime. 12. [place] Thyroid 75 mg p.o. daily. 13. Coenzyme Q10 at 100 mg p.o. daily. 14. Valerian root 300 mg p.o. at bedtime. FOLLOWUP: The patient may follow up with Dr. Preston Herring within 7 days of discharge. Patient will fol low up with Dr. Jaffe within 4-6 weeks after discharge and to call his office for appointment time and date. CONDITION ON DISCHARGE: Stable. ACTIVITY: Ad natalia. DIET: Heart healthy and ADA. CODE STATUS: FULL. DISPOSITION: Home 09/24/2017. Total time preparing and coordinating discharge 33 minutes.
--- NOTE | 2017-09-24 17:08 | PDOC.CTH ---
<Muriel Mi - Last Filed: 09/24/17 17:11> Cardiology Progress Note - Subjective EP progress note Patient has done well overnight. She denies any heart racing, palpitations, or chest pressure like she had with her arrhythmia prior to ablation. She does not have any pain or tenderness at the EPS/Ablation access site, left groin. She has been up walking in the halls, which is only limited by the tenderness in her right groin from a previous procedure. She denies shortness of breath, fatigue, or swelling of her extremities. She has no concerns and is anticipating discharge home. - Objective Vital Signs Temp Pulse Resp BP Pulse Ox 09/24/17 12:28 98.1 F 68 18 174/71 H 97 09/24/17 07:48 98.2 F 60 17 146/65 H 96 Admit Weight 234 lb 11.2 oz Weight 238 lb 11.2 oz 09/23/17 09/24/17 09/25/17 06:59 06:59 06:59 Intake Total 970 900 Output Total 1900 1300 Balance -930 -400 - Physical Examination General/Neuro: alert & oriented x3, NAD Neck: carotid US brisk, no JVD present Lungs: CTA, unlabored respirations Heart: PMI normal, RRR Abdomen: no HSM, NT/ND Extremities: other: (no edema BLE) - Telemetry Telemetry Rhythm: NSR - Labs Result Diagrams: 09/24/17 04:10 09/24/17 04:10 - Assessment/Plan 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 No documented or suspected recurrence of AVNRT Ok to discharge home from EP perspective. Routine clinic follow up in 4-6 weeks. <Zack Jaffe - Last Filed: 09/26/17 15:37> Cardiology Progress Note - Objective Admit Weight 234 lb 11.2 oz Weight 238 lb 11.2 oz - Labs Result Diagrams: 09/24/17 04:10 09/24/17 04:10 Troponin/CKMB CK-MB (CK-2) 2.5 ng/mL (0-6.6) 09/20/17 12:59 Troponin I 0.588 ng/mL (< 0.028) H* 09/20/17 19:31 Attending Addendum - Attending Addendum I personally evaluated the patient and discussed the management with MS Mi.
--- NOTE | 2017-09-24 17:56 | PDOC.CTH ---
Cardiology Progress Note - Subjective She is doing well. She did not have an atrial tach but AVNRT which was ablated. She has no complaints. She has a little fullness on her right groin were she developed a small hematoma yesterday after her LHC. - Objective Vital Signs Temp Pulse Resp BP Pulse Ox 09/24/17 12:28 98.1 F 68 18 174/71 H 97 09/24/17 07:48 98.2 F 60 17 146/65 H 96 Admit Weight 234 lb 11.2 oz Weight 238 lb 11.2 oz 09/23/17 09/24/17 09/25/17 06:59 06:59 06:59 Intake Total 970 900 Output Total 1900 1300 Balance -930 -400 - Physical Examination General/Neuro: alert & oriented x3, NAD Neck: no JVD present Lungs: CTA, unlabored respirations Heart: RRR Abdomen: NT/ND Extremities: + edema B (None) - Telemetry Telemetry Rhythm: NSR - Labs Result Diagrams: 09/24/17 04:10 09/24/17 04:10 Troponin/CKMB CK-MB (CK-2) 2.5 ng/mL (0-6.6) 09/20/17 12:59 Troponin I 0.588 ng/mL (< 0.028) H* 09/20/17 19:31 - Assessment/Plan 1. AVNRT, s/p ablation 2. NSTEMI, demand ischemia 3. Normal coronaries. PLAN: - No indication for ACS therapies as her coronaries were normal. - Follow up in 1 month. - May discharge at any time from cardiac perspective.
--- NOTE | 2017-09-24 23:40 | EKG ---
Test Reason : Blood Pressure : / mmHG Vent. Rate : 068 BPM Atrial Rate : 068 BPM P-R Int : 180 ms QRS Dur : 096 ms QT Int : 430 ms P-R-T Axes : 066 053 034 degrees QTc Int : 457 ms Normal sinus rhythm Normal ECG When compared with ECG of 02-MAR-2017 21:28, No significant change was found Confirmed by Denise HART ([id number]) on 09/24/2017 11:40:10 PM Referred By: JAYMIE Confirmed By:Denise HART
--- NOTE | 2017-09-24 23:42 | EKG ---
Test Reason : Blood Pressure : / mmHG Vent. Rate : 058 BPM Atrial Rate : 058 BPM P-R Int : 168 ms QRS Dur : 100 ms QT Int : 446 ms P-R-T Axes : 052 030 043 degrees QTc Int : 437 ms Sinus bradycardia Otherwise normal ECG When compared with ECG of 23-SEP-2017 16:55, (Unconfirmed) No significant change was found Confirmed by Denise HART ([id number]) on 09/24/2017 11:42:04 PM Referred By: [facility] Confirmed By:Denise HART
--- NOTE | 2017-09-27 08:47 | PQF ---
I do not believe I took care of this patient. Thanks GALE YAN DAVID [id number] [facility]-[id number] CLINICAL DOCUMENTATION CLARIFICATION FORM: POST DISCHARGE Addendum to original discharge summary date: ____ Late entry note date: __ GALE YAN [id number] KEITH COON PLEASE DOCUMENT YOUR RESPONSE BELOW PLEASE FAX RESPONSE BACK TO YOUR INPUT IS NEEDED TO CORRECTLY CODE A DIAGNOSIS FOR YOUR PATIENT. DATE: 09/27/17 ATTN: Dr. Coon Please exercise your independent, professional judgment in responding to the clarification form. Clinical indicators are provided on the bottom of this form for your review Please check appropriate box(s) to clarify if the following diagnosis has been ruled in our ruled out: NSTEMI (CDI/ Coding list diagnosis here) [ ] Ruled in diagnosis [ ] Continue to treat [ ] Resolved [ ] Ruled out diagnosis [ ] Cannot rule out diagnosis [ ] Other diagnosis [ ] Unable to determine In addition, please specify: Present on Admission (POA): [ ] Yes [ ] No [ ] Unable to determine CLINICAL INDICATORS - SIGNS / SYMPTOMS / LABS Elevated troponins Caridology documenting "NSTEMI due to demand ischemia" RISK FACTORS NSVT TREATMENTS Cardiac cath Ablation MTDD
--- NOTE | 2017-10-02 21:27 | PQF ---
GALE YANDIANA DO [id number] CLINICAL DOCUMENTATION CLARIFICATION FORM: POST DISCHARGE Addendum to original discharge summary date: ____ Late entry note date: __ GALE YAN [id number] PLEASE DOCUMENT YOUR RESPONSE BELOW YOUR INPUT IS NEEDED TO CORRECTLY CODE A DIAGNOSIS FOR YOUR PATIENT. DATE: 10/02/17 ATTN: Dr. Sage Please exercise your independent, professional judgment in responding to the clarification form. Clinical indicators are provided on the bottom of this form for your review Please check appropriate box(s) to clarify if the following diagnosis has been ruled in our ruled out: NSTEMI due to demand ischemia (CDI/Coding list diagnosis here) [ ] Ruled in diagnosis [ ] Continue to treat [ ] Resolved [ x ] Ruled out diagnosis [ ] Cannot rule out diagnosis [ ] Other diagnosis [ ] Unable to determine In addition, please specify: Present on Admission (POA): [ ] Yes [ x ] No [ ] Unable to determine CLINICAL INDICATORS - SIGNS / SYMPTOMS / LABS Elevated troponins [facility] documenting "NSTEMI due to demand ischemia" RISK FACTORS NSVT TREATMENTS MTDD
== END 2017-09-24 17:51 | disposition home or self-care (01) | DRG 274 ==
LOC: SCSER 12:35 → 2NO 17:55
PROVIDERS: ADMIT Internal Medicine; ATTEND Internal Medicine
PROC: 4A023N7 Measurement of Cardiac Sampling and Pressure, Left Heart, Percutaneous Approach (ICD-10-PCS; principal; 2017-09-23)
PROC: 02583ZZ Destruction of Conduction Mechanism, Percutaneous Approach (ICD-10-PCS; 2017-09-23)
PROC: B2111ZZ Fluoroscopy of Multiple Coronary Arteries using Low Osmolar Contrast (ICD-10-PCS; 2017-09-23)
PROC: B2151ZZ Fluoroscopy of Left Heart using Low Osmolar Contrast (ICD-10-PCS; 2017-09-23)
PROC: 02K83ZZ Map Conduction Mechanism, Percutaneous Approach (ICD-10-PCS; 2017-09-23)
PROC: 4A023FZ Measurement of Cardiac Rhythm, Percutaneous Approach (ICD-10-PCS; 2017-09-23)
PROC: 4A0234Z Measurement of Cardiac Electrical Activity, Percutaneous Approach (ICD-10-PCS; 2017-09-23)
DX: I47.1 Supraventricular tachycardia (principal); E11.22 Type 2 diabetes mellitus with diabetic chronic kidney disease; I24.8 Other forms of acute ischemic heart disease; E66.01 Morbid (severe) obesity due to excess calories; I08.1 Rheumatic disorders of both mitral and tricuspid valves; N18.3 Chronic kidney disease, stage 3 (moderate); E03.9 Hypothyroidism, unspecified; G47.33 Obstructive sleep apnea (adult) (pediatric); K21.9 Gastro-esophageal reflux disease without esophagitis; M06.9 Rheumatoid arthritis, unspecified; M19.90 Unspecified osteoarthritis, unspecified site; G25.81 Restless legs syndrome; E78.5 Hyperlipidemia, unspecified; I12.9 Hypertensive chronic kidney disease with stage 1 through stage 4 chronic kidney disease, or unspecified chronic kidney disease; F41.9 Anxiety disorder, unspecified; F32.9 Major depressive disorder, single episode, unspecified; Z68.35 Body mass index [BMI] 35.0-35.9, adult; Z87.891 Personal history of nicotine dependence
CPT/HCPCS: 36415; 36416; 71275; 74177; 76942; 80053; 80061; 81003; 82553; 82565; 83605; 83690; 84443; 84484; 85014; 85018; 85025; 85049; 85379; 93005; 93010; 93306; 93458; 93613; 93623; 93653; 94660; 96361; 96372; 96374; 99152; A4216; C1730; C1731; C1769; J1644; J1650; J2250; J2405; J2704; J3010; Q0162

== ENCOUNTER 2017-11-21 10:44 | Outpatient (CLI) | payer MEDICARE | END 2017-11-21 10:45 | disposition home or self-care (01) | LOC: BICMAMMO 10:44 | PROVIDERS: ATTEND Family Medicine | DX: Z78.0 Asymptomatic menopausal state (principal) | CPT/HCPCS: 77080 ==

== ENCOUNTER 2018-02-26 13:43 | Emergency (ER) | payer MEDICARE ==
[2018-02-26 14:22] LABS: #Eosinphils 0.1 thou/uL (0.0-0.7); #Lymphocytes 1.7 thou/uL (1.20-3.40); #Monocytes 0.6 thou/uL (0.11-0.59); #Neutrophils 5.9 thou/uL (1.40-6.50); %Basophils 0.5 % (0.0-1.0); %Eosinophils 0.9 % (0.0-10.0); %Lymphocytes 20.6 % (21.0-51.0); %Monocytes 6.9 % (0.0-10.0); %Neutrophils 71.1 % (42.0-75.0); Hemoglobin 13.2 g/dL (12.0-16.0); Mean Corpuscular HGB CONC 34.3 g/dL (32.0-36.0); Mean Corpuscular Hemoglobin 29.8 pg (27.0-31.0); Mean Corpuscular Volume 86.8 fL (78.0-98.0); Platelet Count 247 thou/uL (130-400); RBC Distribution Width 14.2 % (11.5-14.5); Red Blood Cell (RBC) Count 4.44 mill/uL (4.20-5.40); White Blood Cell (WBC) Count 8.2 thou/uL (4.8-10.8)
[2018-02-26 14:29] LABS: PTT 29.3 SEC (22.9-36.1); Prothrombin Time 13.1 SEC (12.0-14.7)
--- NOTE | 2018-02-26 14:31 | RAD ---
CHEST ONE VIEW: History: Hypotension. Comparison: 03-02-17 FINDINGS: Portable upright chest demonstrates a normal cardiac silhouette. Pulmonary vessels and hilum are norm al. No consolidation or mass. No pneumothorax or osseous abnormalities. Cervical fusion hardware is noted. IMPRESSION: No acute cardiopulmonary process. POS: [facility]
[2018-02-26 14:51] LABS: ALT (SGPT) 15 U/L (8-55); AST (SGOT) 13 U/L (5-34); Albumin 4.6 g/dL (3.4-4.8); Alkaline Phosphatase 78 U/L (40-150); Anion Gap 13 mmol/L (10-20); BUN (Urea Nitrogen) 34 mg/dL (9.8-20.1); Bilirubin, Total 0.5 mg/dL (0.2-1.2); CK (CPK) 21 U/L (29-168); CKMB 1.5 ng/mL (0-6.6); Calc. Creatinine Clearance 0 mL/min (70-130); Calcium 10.7 mg/dL (7.8-10.44); Carbon Dioxide 25 mmol/L (23-31); Chloride 104 mmol/L (98-107); Estimated GFR-MDRD 41; Globulin 3.8 g/dL (2.4-3.5); Glucose 141 mg/dL (80-115); Potassium 4.6 mmol/L (3.5-5.1); Protein, Total 8.4 g/dL (6.0-8.3); Sodium 137 mmol/L (136-145); Troponin I Less than 0.010 ng/mL (< 0.028)
[2018-02-26 15:05] LABS: Bilirubin Small (Negative); Blood, Urine Negative (Negative); Clarity CLOUDY (Clear); Glucose, Urine (Dipstick) Negative (Negative); Leukocyte Negative (Negative); Nitrite Negative (Negative); Protein, Urine (Dipstick) Negative (Neg-Trace); Urobilinogen 0.2 mg/dL (0.2-1.0)
--- NOTE | 2018-03-01 14:33 | EKG ---
Test Reason : DIZZINESS Blood Pressure : / mmHG Vent. Rate : 073 BPM Atrial Rate : 073 BPM P-R Int : 144 ms QRS Dur : 092 ms QT Int : 378 ms P-R-T Axes : 051 037 053 degrees QTc Int : 416 ms Normal sinus rhythm Normal ECG Confirmed by KIMBER DUNBAR ([id number]), web editor FORTINO JEAN BAPTISTE ([id number]) on 03/01/2018 2:32:37 PM Referred By: MANJINDER Confirmed By:KIMBER DUNBAR
== END 2018-02-26 17:25 | disposition home or self-care (01) ==
LOC: ERS 13:43
DX: R53.83 Other fatigue (principal); K21.9 Gastro-esophageal reflux disease without esophagitis; G47.30 Sleep apnea, unspecified; I12.0 Hypertensive chronic kidney disease with stage 5 chronic kidney disease or end stage renal disease; N18.9 Chronic kidney disease, unspecified; M19.90 Unspecified osteoarthritis, unspecified site; E11.22 Type 2 diabetes mellitus with diabetic chronic kidney disease; E03.9 Hypothyroidism, unspecified; E78.5 Hyperlipidemia, unspecified; I10 Essential (primary) hypertension; F41.9 Anxiety disorder, unspecified; F43.10 Post-traumatic stress disorder, unspecified; F42.9 Obsessive-compulsive disorder, unspecified; Z79.899 Other long term (current) drug therapy
CPT/HCPCS: 71045; 80053; 81003; 82550; 82553; 83735; 84484; 85025; 85610; 85730; 93005

== ENCOUNTER 2018-03-07 07:24 | Outpatient (CLI) | payer MEDICARE ==
[2018-03-07] MEDS ORDERED: Gadobenate Dimeglumine 529 MG/1 ML (20ML VIAL) ONE (12:18)
== END 2018-03-07 07:25 | disposition home or self-care (01) ==
LOC: BICCT 07:24
PROVIDERS: ATTEND Surgery
DX: M47.26 Other spondylosis with radiculopathy, lumbar region (principal); M54.12 Radiculopathy, cervical region; M54.6 Pain in thoracic spine; M99.81 Other biomechanical lesions of cervical region; M51.16 Intervertebral disc disorders with radiculopathy, lumbar region; M51.17 Intervertebral disc disorders with radiculopathy, lumbosacral region; M48.061 Spinal stenosis, lumbar region without neurogenic claudication; M51.24 Other intervertebral disc displacement, thoracic region; M48.02 Spinal stenosis, cervical region; Z98.1 Arthrodesis status
CPT/HCPCS: 72050; 72110; 72125; 72146; 72148; 72156; A9579

== ENCOUNTER 2018-07-21 12:08 | Outpatient (CLI) | payer MEDICARE ==
--- NOTE | 2018-07-21 15:01 | RAD ---
ABDOMEN ONE VIEW: HISTORY: A 68-year-old female with a history of kidney stones. FINDINGS: No overt renal calculus. Fecal material within the colon somewhat obscures portions of both kidneys. Small multiple bilateral phleboliths are noted in the pelvis. IMPRESSION: No overt genitourinary calculus. POS: [facility]
== END 2018-07-21 12:09 | disposition home or self-care (01) ==
LOC: SCSRAD 12:08
PROVIDERS: ATTEND Urology
DX: N20.0 Calculus of kidney (principal)
CPT/HCPCS: 74018

== ENCOUNTER 2019-09-22 15:54 | Emergency (ER) | payer MEDICARE ==
[~2019-09-22 15:54] MED LIST: Iopamidol-370 76% 500 ML 1 ML ONE
[2019-09-22 16:53] LABS: #Eosinphils 0.1 thou/uL (0.0-0.7); #Lymphocytes 1.7 thou/uL (1.20-3.40); #Monocytes 0.4 thou/uL (0.11-0.59); #Neutrophils 4.8 thou/uL (1.40-6.50); %Basophils 0.2 % (0.0-1.0); %Eosinophils 1.1 % (0.0-10.0); %Lymphocytes 24.9 % (21.0-51.0); %Monocytes 5.3 % (0.0-10.0); %Neutrophils 68.6 % (42.0-75.0); Hemoglobin 12.6 g/dL (12.0-16.0); Mean Corpuscular HGB CONC 33.9 g/dL (32.0-36.0); Mean Corpuscular Hemoglobin 29.2 pg (27.0-31.0); Mean Platelet Volume 7.6 fL (7.4-10.4); Platelet Count 226 thou/uL (130-400); RBC Distribution Width 12.8 % (11.5-14.5); Red Blood Cell (RBC) Count 4.33 mill/uL (4.20-5.40)
[2019-09-22 17:21] LABS: ALT (SGPT) 13 U/L (8-55); AST (SGOT) 12 U/L (5-34); Albumin 4.4 g/dL (3.4-4.8); Alkaline Phosphatase 76 U/L (40-110); Anion Gap 12 mmol/L (10-20); BUN (Urea Nitrogen) 11 mg/dL (9.8-20.1); Bilirubin, Total 0.4 mg/dL (0.2-1.2); Calc. Creatinine Clearance 0 mL/min (70-130); Calcium 9.8 mg/dL (7.8-10.44); Carbon Dioxide 26 mmol/L (23-31); Chloride 107 mmol/L (98-107); Estimated GFR-MDRD 37; Globulin 3.4 g/dL (2.4-3.5); Glucose 131 mg/dL (80-115); Lipase 53 U/L (8-78); Potassium 3.9 mmol/L (3.5-5.1); Protein, Total 7.8 g/dL (6.0-8.3); Sodium 141 mmol/L (136-145)
[2019-09-22 18:16] LABS: Bacteria/HPF 4+ HPF (None Seen); Bilirubin Negative (Negative); Blood, Urine Negative (Negative); Clarity Turbid (Clear); Glucose, Urine (Dipstick) Normal (Negative); Leukocyte Negative Leu/uL (Negative); Nitrite Negative (Negative); Protein, Urine (Dipstick) 70 mg/dL (Neg-Trace); RBC/HPF 0-3 HPF (0-3)
--- NOTE | 2019-09-22 19:20 | CT ---
CT ABDOMEN AND PELVIS WITH IV CONTRAST: 09/22/19 INDICATION: History of abdominal pain with diarrhea and abdominal cramping. COMPARISON: CT of the chest, abdomen and pelvis dated 09/20/17. FINDINGS: There is stable benign pulmonary nodules involving both lower lobes. There is stable fatty liver. There is stable mild splenomegaly measuring 13.9 cm. Pancreas, adrenal glands and kidneys are normal appearing. No hydronephrosis is evident. There are tiny hypodensities involving both kidneys that are likely reflective of cysts and appears similar to the comparison examination. There are moderate calcifications involving the abdominopelvic vasculature. No free fluid or enlarged lymph nodes are evident. The appendix is not definitely visualized; however, there are no secondary signs of appendicitis. The bladder is decompressed. Reproductive structures are presumed to be surgically absent. The rectum and perirectal soft tissues are unremarkable appearing. No enlarged lymph nodes or free fluid is evident within the pelvis. There are scattered degenerative and osteoarthritic change. No definite acute osseous abnormality is evident. IMPRESSION: 1. No CT explanation for the patient's abdominal pain. 2. Stable benign pulmonary nodule involving the lung bases. 3. Stable splenomegaly. 4. Stable fatty liver. POS: [facility]
== END 2019-09-22 19:46 | disposition home or self-care (01) ==
LOC: ERS 15:54
DX: N39.0 Urinary tract infection, site not specified (principal); R19.7 Diarrhea, unspecified; I12.9 Hypertensive chronic kidney disease with stage 1 through stage 4 chronic kidney disease, or unspecified chronic kidney disease; N18.9 Chronic kidney disease, unspecified; K21.9 Gastro-esophageal reflux disease without esophagitis; M06.9 Rheumatoid arthritis, unspecified; G47.30 Sleep apnea, unspecified; E11.9 Type 2 diabetes mellitus without complications; E03.9 Hypothyroidism, unspecified; E78.5 Hyperlipidemia, unspecified; E78.00 Pure hypercholesterolemia, unspecified; F32.9 Major depressive disorder, single episode, unspecified; F41.9 Anxiety disorder, unspecified; F43.10 Post-traumatic stress disorder, unspecified; F42.9 Obsessive-compulsive disorder, unspecified
CPT/HCPCS: 36415; 74177; 80053; 81003; 81015; 83690; 85025; 87086; 96360; Q9967

== ENCOUNTER 2020-04-06 11:06 | Outpatient (CLI) | payer MEDICARE ==
--- NOTE | 2020-04-06 12:02 | CT ---
CT HEAD WITHOUT CONTRAST: Date: 04/06/2020 INDICATINO: Headache. Comparison made to prior head CT of 03/03/2017. FINDINGS: Ventricles have normal size and position. No evidence of intracranial mass or hemorrhage. No evidence of infarct or edema. No significant white matter abnormality. The paranasal sinuses and mastoids are clear. IMPRESSION: Unremarkable CT head. POS: [facility]
== END 2020-04-06 11:07 | disposition home or self-care (01) ==
LOC: SCSCT 11:06
PROVIDERS: ATTEND Family Medicine
DX: G44.52 New daily persistent headache (NDPH) (principal)
CPT/HCPCS: 70450

== ENCOUNTER 2020-06-06 12:19 | Outpatient (CLI) | payer MEDICARE ==
--- NOTE | 2020-06-06 14:22 | RAD ---
BILATERAL RIBS 4 VIEWS WITH CHEST 1 VIEW: Date: 06/06/2020 HISTORY: Injury from a fall. FINDINGS: Heart size is normal. The lungs are clear. No pneumothorax or pleural effusion. No convincing evidenc e for acute rib fracture. IMPRESSION: No convincing evidence for acute rib fracture. POS: [facility]
== END 2020-06-06 12:20 | disposition home or self-care (01) ==
LOC: SCSRAD 12:19
PROVIDERS: ATTEND Family Medicine
DX: R07.81 Pleurodynia (principal)
CPT/HCPCS: 71111

== ENCOUNTER 2020-06-24 17:37 | Emergency (ER) | payer MEDICARE ==
[2020-06-24] MEDS ORDERED: Dexamethasone 10 MG/ML VIAL ONE (19:05)
[2020-06-24] MEDS ORDERED: HYDROcodone/Acetaminophen 10/325 mg Tablet ONE (19:05)
== END 2020-06-24 19:15 | disposition home or self-care (01) ==
LOC: ERS 17:37
DX: M54.16 Radiculopathy, lumbar region (principal); K21.9 Gastro-esophageal reflux disease without esophagitis; I12.9 Hypertensive chronic kidney disease with stage 1 through stage 4 chronic kidney disease, or unspecified chronic kidney disease; E11.22 Type 2 diabetes mellitus with diabetic chronic kidney disease; N18.9 Chronic kidney disease, unspecified; G47.30 Sleep apnea, unspecified; M06.9 Rheumatoid arthritis, unspecified; E03.9 Hypothyroidism, unspecified; E78.5 Hyperlipidemia, unspecified; E78.00 Pure hypercholesterolemia, unspecified; F32.9 Major depressive disorder, single episode, unspecified; F41.9 Anxiety disorder, unspecified; F43.10 Post-traumatic stress disorder, unspecified; Z79.84 Long term (current) use of oral hypoglycemic drugs; Z79.899 Other long term (current) drug therapy
CPT/HCPCS: 99283; J1100

== ENCOUNTER 2021-09-22 11:31 | Emergency (ER) | payer MEDICARE ==
[2021-09-22] MEDS ORDERED: HYDROcodone/Acetaminophen 5/325 mg Tablet ONE (13:36)
[2021-09-22] MEDS ORDERED: Lidocaine 1% PF 5 ML VIAL ONE (14:16)
[2021-09-22] MEDS ORDERED: Bupivacaine 0.25% 10 ML VIAL ONE (14:16)
== END 2021-09-22 14:50 | disposition home or self-care (01) ==
LOC: ERS 11:31
DX: M54.2 Cervicalgia (principal); L20.9 Atopic dermatitis, unspecified; E78.00 Pure hypercholesterolemia, unspecified; E78.5 Hyperlipidemia, unspecified; E03.9 Hypothyroidism, unspecified; K21.9 Gastro-esophageal reflux disease without esophagitis; I12.9 Hypertensive chronic kidney disease with stage 1 through stage 4 chronic kidney disease, or unspecified chronic kidney disease; N18.9 Chronic kidney disease, unspecified; E11.22 Type 2 diabetes mellitus with diabetic chronic kidney disease; Z79.84 Long term (current) use of oral hypoglycemic drugs; Z79.899 Other long term (current) drug therapy
CPT/HCPCS: 20552; 70450; 72125; S0020

== ENCOUNTER 2021-09-23 04:01 | Emergency (ER) | payer MEDICARE ==
[2021-09-23] MEDS ORDERED: HYDROcodone/Acetaminophen 5/325 mg Tablet ONE (04:46)
== END 2021-09-23 05:00 | disposition home or self-care (01) ==
LOC: ERS 04:01
DX: M50.30 Other cervical disc degeneration, unspecified cervical region (principal); K21.9 Gastro-esophageal reflux disease without esophagitis; M06.9 Rheumatoid arthritis, unspecified; E11.9 Type 2 diabetes mellitus without complications; E03.9 Hypothyroidism, unspecified; E78.5 Hyperlipidemia, unspecified; E78.00 Pure hypercholesterolemia, unspecified; I10 Essential (primary) hypertension
CPT/HCPCS: 99283

== ENCOUNTER 2022-08-29 15:13 | Outpatient (CLI) | payer MEDICARE ==
[2022-08-29 17:37] LABS: ALT (SGPT) 15 U/L (8-55); AST (SGOT) 17 U/L (5-34); Albumin 4.5 g/dL (3.4-4.8); Alkaline Phosphatase 74 U/L (40-110); Anion Gap 13 mmol/L (10-20); BUN (Urea Nitrogen) 10 mg/dL (9.8-20.1); Bilirubin, Total 0.6 mg/dL (0.2-1.2); Calc. Creatinine Clearance 0 mL/min (70-130); Carbon Dioxide 25 mmol/L (23-31); Chloride 104 mmol/L (98-107); Estimated GFR 55; Globulin 3.1 g/dL (2.4-3.5); Glucose 132 mg/dL (83-110); Potassium 4.4 mmol/L (3.5-5.1); Protein, Total 7.6 g/dL (5.8-8.1); Sodium 138 mmol/L (136-145)
[2022-08-29 19:47] LABS: Bacteria/HPF 1+ HPF (None Seen); Bilirubin Negative (Negative); Blood, Urine Negative (Negative); Clarity Clear (Clear); Glucose, Urine (Dipstick) Normal (Negative); Ketone, Urine Trace mg/dL (Negative); Leukocyte Negative Leu/uL (Negative); Nitrite Negative (Negative); Protein, Urine (Dipstick) 50 mg/dL (Neg-Trace); RBC/HPF 0-3 HPF (0-3); Specific Gravity, Urine 1.035 (1.002-1.036); Squamous Epithelial 0-3 HPF (0-3); WBC/HPF 0-3 HPF (0-3); pH, Urine 5.5 (5.0-9.0)
== END 2022-08-29 15:14 | disposition home or self-care (01) ==
LOC: SCSRAD 15:13
PROVIDERS: ATTEND Family Medicine
DX: J45.41 Moderate persistent asthma with (acute) exacerbation (principal); J01.00 Acute maxillary sinusitis, unspecified; N18.2 Chronic kidney disease, stage 2 (mild); J40 Bronchitis, not specified as acute or chronic
CPT/HCPCS: 36415; 71046; 80053; 81001

== ENCOUNTER 2022-11-23 15:54 | Outpatient (CLI) | payer MEDICARE | END 2022-11-23 15:55 | disposition home or self-care (01) | LOC: SCSRAD 15:54 | PROVIDERS: ATTEND Family Medicine | DX: R10.31 Right lower quadrant pain (principal); R10.32 Left lower quadrant pain ==

== ENCOUNTER 2022-11-29 08:31 | Outpatient (CLI) | payer MEDICARE | END 2022-11-29 08:32 | disposition home or self-care (01) | LOC: BICCT 08:31 | PROVIDERS: ATTEND Physician Assistant Medical | DX: K58.9 Irritable bowel syndrome, unspecified (principal); R10.12 Left upper quadrant pain; R19.8 Other specified symptoms and signs involving the digestive system and abdomen | CPT/HCPCS: 74177 ==

== ENCOUNTER 2022-12-30 22:06 | Emergency (ER) | payer MEDICARE ==
[2022-12-30 23:17] LABS: #Eosinphils 0.2 thou/uL (0.0-0.7); #Lymphocytes 2.3 thou/uL (1.20-3.40); #Monocytes 0.4 thou/uL (0.11-0.59); #Neutrophils 3.6 thou/uL (1.40-6.50); %Basophils 0.4 % (0.0-1.0); %Eosinophils 2.6 % (0.0-10.0); %Lymphocytes 35.3 % (21.0-51.0); %Monocytes 6.1 % (0.0-10.0); %Neutrophils 55.6 % (42.0-75.0); Hemoglobin 12.6 g/dL (12.0-16.0); Mean Corpuscular HGB CONC 34.6 g/dL (32.0-36.0); Mean Corpuscular Hemoglobin 29.7 pg (27.0-31.0); Mean Corpuscular Volume 85.7 fl (78.0-98.0); Mean Platelet Volume 8.4 fL (7.4-10.4); Platelet Count 196 10x3/uL (130-400); RBC Distribution Width 13.5 % (11.5-14.5); Red Blood Cell (RBC) Count 4.26 mill/uL (4.20-5.40); White Blood Cell (WBC) Count 6.4 10x3/uL (4.8-10.8)
[2022-12-30 23:48] LABS: ALT (SGPT) 23 U/L (8-55); AST (SGOT) 18 U/L (5-34); Albumin 4.2 g/dL (3.4-4.8); Alkaline Phosphatase 65 U/L (40-110); Anion Gap 14 mmol/L (10-20); BUN (Urea Nitrogen) 16 mg/dL (9.8-20.1); Bilirubin, Total 0.3 mg/dL (0.2-1.2); Calc. Creatinine Clearance 0 mL/min (70-130); Calcium 10.2 mg/dL (7.8-10.44); Carbon Dioxide 24 mmol/L (23-31); Chloride 105 mmol/L (98-107); Estimated GFR 48; Glucose 176 mg/dL (83-110); Phosphorus 4.1 mg/dL (2.3-4.7); Potassium 3.9 mmol/L (3.5-5.1); Protein, Total 7.2 g/dL (5.8-8.1); Sodium 140 mmol/L (136-145)
== END 2022-12-31 01:19 | disposition home or self-care (01) ==
LOC: ERS 22:06
DX: M79.10 Myalgia, unspecified site (principal); K21.9 Gastro-esophageal reflux disease without esophagitis; N18.9 Chronic kidney disease, unspecified; I12.9 Hypertensive chronic kidney disease with stage 1 through stage 4 chronic kidney disease, or unspecified chronic kidney disease; E78.00 Pure hypercholesterolemia, unspecified; E03.9 Hypothyroidism, unspecified
CPT/HCPCS: 36415; 36416; 71045; 80053; 82550; 83880; 84100; 84484; 85025; 93005

== ENCOUNTER 2023-03-08 14:29 | Outpatient (CLI) | payer MEDICARE | END 2023-03-08 14:30 | disposition home or self-care (01) | LOC: SCSMRI 14:29 | PROVIDERS: ATTEND Family Medicine | DX: M47.22 Other spondylosis with radiculopathy, cervical region (principal); M50.121 Cervical disc disorder at C4-C5 level with radiculopathy; M89.38 Hypertrophy of bone, other site; Z98.1 Arthrodesis status | CPT/HCPCS: 72141 ==

== ENCOUNTER 2023-05-09 08:44 | Outpatient (CLI) | payer MEDICARE | END 2023-05-09 08:45 | disposition home or self-care (01) | LOC: SCSMRI 08:44 | PROVIDERS: ATTEND Neurological Surgery | DX: M47.26 Other spondylosis with radiculopathy, lumbar region (principal); M47.817 Spondylosis without myelopathy or radiculopathy, lumbosacral region | CPT/HCPCS: 72100; 72148 ==

== ENCOUNTER 2025-03-26 13:08 | Outpatient (CLI) | payer OTHER | END 2025-03-26 13:09 | disposition home or self-care (01) | LOC: BICRAD 13:08 | PROVIDERS: ATTEND Family Medicine | DX: M25.551 Pain in right hip (principal) ==

== ENCOUNTER 2025-03-31 12:53 | Outpatient (CLI) | payer OTHER | END 2025-03-31 12:54 | disposition home or self-care (01) | LOC: BICULT 12:53 | PROVIDERS: ATTEND Family Medicine | DX: R18.8 Other ascites (principal); N32.89 Other specified disorders of bladder | CPT/HCPCS: 76856 ==

== ENCOUNTER 2025-08-12 10:50 | Outpatient (CLI) | payer OTHER | END 2025-08-12 10:51 | disposition home or self-care (01) | LOC: SCSMRI 10:50 | PROVIDERS: ATTEND Family Medicine | DX: R29.810 Facial weakness (principal); G93.9 Disorder of brain, unspecified | CPT/HCPCS: 70553; 76376 ==